=== PATIENT | male | born 1980 | race Hispanic/Latino ===

== ENCOUNTER 2022-11-23 19:23 | Emergency (ER) | payer OTHER ==
[~2022-11-23] VITALS: Ht 165.1 cm; Wt 79.4 kg
[2022-11-23] MEDS ORDERED: METOCLOPRAMIDE 10 MG/2 ML VIAL IVP ONE (20:30)
[2022-11-23] MEDS ORDERED: DIAZEPAM 5 MG/ML 2 ML SYG IVP ONE (20:30)
[2022-11-23] MEDS ORDERED: FAMOTIDINE 20MG VIAL IV ONE (20:30)
[2022-11-23] MEDS ORDERED: KETOROLAC 30MG VIAL (30MG/ML) IVP ONE (20:30)
[2022-11-23] MEDS ORDERED: 0.9%NACL 1000ML 1,845 ML IV ONE (20:30)
[2022-11-23] MEDS ORDERED: CEFTRIAXONE 2GM VIAL IVPB ONE (20:30)
[2022-11-23 21:16] LABS: APPEARANCE,URINE CLEAR (CLEAR); BILIRUBIN,URINE NEGATIVE (NEGATIVE); COLOR,URINE COLORLESS (YELLOW); GLUCOSE, URINE (UA) NEGATIVE (NEGATIVE); KETONES,URINE NEGATIVE (NEGATIVE); LEUKOCYTE ESTERASE ,URINE NEGATIVE Leu/uL (NEGATIVE); NITRATE,URINE NEGATIVE (NEGATIVE); OCCULT BLOOD,URINE NEGATIVE (NEGATIVE); PROTEIN,URINE NEGATIVE (NEGATIVE); UROBILINOGEN,URINE 0.2 mg/dL (0.2-1.0)
[2022-11-23 21:23] LABS: BASOPHILS % (AUTO) 0.4 % (0.0-5.0); HEMATOCRIT 43.7 % (42-54); LYMPHOCYTES % (AUTO) 7.1 % (21.0-51.0); MEAN CORPUSCULAR HEMOGLOBIN 30.1 pg (27.0-33.0); MEAN CORPUSCULAR HGB CONC 34.6 g/dL (32.0-36.0); MEAN CORPUSCULAR VOLUME 87.1 fL (79-99); MONOCYTES % (AUTO) 8.4 % (3.0-13.0); NEUTROPHILS % (AUTO) 83.9 % (40.0-77.0); PLATELET COUNT (AUTO) 253 K/uL (130-400); RED BLOOD CELL COUNT(AUTO) 5.02 MIL/uL (4.50-6.20); RED CELL DISTRIBUTION WIDTH 12.6 % (11.0-15.5)
[2022-11-23 21:32] LABS: CREATININE 1.1 mg/dL (0.5-1.5); POTASSIUM 3.6 mmol/L (3.5-5.1)
[2022-11-23 21:34] LABS: INR 0.93 (0.85-1.15); PROTHROMBIN TIME 10.1 SEC (9.6-11.6)
[2022-11-23 21:35] LABS: PARTIAL THROMBOPLASTIN TIME 27.4 SEC (26.3-35.5)
[2022-11-23 21:37] LABS: TOTAL PROTEIN, SERUM 7.7 g/dL (6.0-8.3)
[2022-11-23 22:41] VITALS: BP 132/80
[2022-11-23] MEDS ORDERED: HYDR50CA50 PO (22:53)
[2022-11-23] MEDS ORDERED: METO-296 PO (22:53)
== END 2022-11-23 23:19 | disposition home or self-care (01) ==
LOC: EDH 19:23
DX: 000.000 (principal); G44.209 Tension-type headache, unspecified, not intractable; I10 Essential (primary) hypertension; F41.9 Anxiety disorder, unspecified; Z77.098 Contact with and (suspected) exposure to other hazardous, chiefly nonmedicinal, chemicals
CPT/HCPCS: 99284; 82550; 84484; 80053; 85025; 85610; 85730; 87040 ×2; 87088; 83605; 81001; 36415; 96365; 96375; J3490; J7030; J0696; J3360; J1885; J2765